=== PATIENT | male | born 1960 | race Caucasian/White ===

== ENCOUNTER 2019-05-16 20:09 | Emergency (ER) | payer OTHER, BC ==
[~2019-05-16] VITALS: Ht 177.8 cm; Wt 115.5 kg
[2019-05-16 20:10] VITALS: BP 149/100
[2019-05-16] MEDS ORDERED: LIDOCAINE-MPF 1%, 5ML ONE (20:22)
[2019-05-16] MEDS ORDERED: LIDOCAINE-MPF 1%, 5ML INFIL ONE (20:30)
[2019-05-16] MEDS ORDERED: NEOSPORIN OINT. PKT 1 PACKET ONE (20:59)
[2019-05-16] MEDS ORDERED: DIPH,PERTUSS(ACELL),TET VAC/PF 0.5 ML IM-VACC ONE (21:30)
== END 2019-05-16 21:29 | disposition home or self-care (01) ==
LOC: ED 21:05
DX: S61.512A Laceration without foreign body of left wrist, initial encounter (principal); W45.8XXA Other foreign body or object entering through skin, initial encounter; Y93.89 Activity, other specified; Y92.89 Other specified places as the place of occurrence of the external cause; Y99.8 Other external cause status
CPT/HCPCS: 12032; 12042; 90471; 90715; 99284